=== PATIENT | male | born 1960 | race Two or more races ===

== ENCOUNTER 2021-12-05 05:14 | Emergency (ER) | payer SELFPAY ==
[~2021-12-05] VITALS: Ht 167.6 cm; Wt 68.1 kg
[2021-12-05 05:31] VITALS: BP 129/88
[2021-12-05 06:23] LABS: ALBUMIN 3.9 g/dL (3.2-5.0); ALKALINE PHOSPHATASE 100 u/l (38-126); ANION GAP 16 (6-22 (CALC)); BILIRUBIN, TOTAL 1.4 mg/dL (0.0-1.4); BUN 15 mg/dL (8-23); BUN/CREATININE RATIO 13 (12-20 (CALC)); CARBON DIOXIDE 25 mmol/l (22-30); CHLORIDE 99 mmol/l (95-108); CREATININE 1.1 mg/dL (0.7-1.3); GFR FOR AFR.AMER. > 60 ML/MIN (>=60 (CALC)); GFR OTHER RACES > 60 ML/MIN (>=60 (CALC)); POTASSIUM 4.1 mmol/l (3.5-5.1); SGOT/AST 33 u/l (19-48); SODIUM 136 mmol/l (137-146); TOTAL PROTEIN 7.9 g/dL (6.3-8.2)
[2021-12-05 06:35] LABS: HEMATOCRIT 40.5 % (39.0-50.0); HEMOGLOBIN 13.9 g/dl (14.0-18.0); IMMATURE GRANULOCYTES 0.5 % (0.0-5.0); MEAN CORPUSCULAR HGB 34.3 pG CALC (26.0-32.0); MEAN CORPUSCULAR HGB CONC 34.3 g/dL CAL (32.0-36.0); NEUT# 16.99 thou/uL (1.82-7.42); RED BLOOD COUNT 4.05 mill/uL (4.70-6.10); RED CELL DISTRI WIDTH 12.1 % (11.5-15.5)
[2021-12-05 06:36] VITALS: BP 120/75
[2021-12-05 06:37] LABS: MYOGLOBIN 47 ng/mL (0 - 121)
[2021-12-05 07:00] VITALS: BP 123/82
[2021-12-05 07:30] VITALS: BP 119/77
[2021-12-05 09:08] LABS: URINE BLOOD DIPSTICK LARGE (NEGATIVE); URINE COLOR ORANGE; URINE GLUCOSE - DIPSTICK NEGATIVE (NEGATIVE); URINE KETONE TRACE mg/dL (NEGATIVE); URINE LEUK ESTERASE NEGATIVE (NEGATIVE); URINE PH 5.5 (4.5-8.0); URINE PROTEIN - DIPSTICK 30 mg/dL (NEG-TRACE); URINE SPECIFIC GRAVITY >=1.030
[2021-12-05 09:12] VITALS: BP 119/82
[2021-12-05 09:17] LABS: URINE BILIRUBIN - DIPSTICK SMALL (NEGATIVE); URINE NITRITE - DIPSTICK NEGATIVE (Negative)
[2021-12-05 09:30] LABS: URINE AMORPH SEDIMENT MANY hpf (NONE-FER); URINE WBC 0-2 WBC/hpf (0-5)
[2021-12-05 09:31] LABS: URINE TRANSITIONAL EPI. CELLS FEW hpf
[2021-12-05 09:40] VITALS: BP 119/82
== END 2021-12-05 09:45 | disposition short-term general hospital (02) | DRG 558 ==
LOC: ED 05:14
PROVIDERS: Emergency Medicine
DX: M60.08 Infective myositis, other site (principal); R94.31 Abnormal electrocardiogram [ECG] [EKG]; G20 Parkinson's disease; Z20.822 Contact with and (suspected) exposure to COVID-19
CPT/HCPCS: J1644

== ENCOUNTER 2022-01-07 16:11 | Emergency (ER) | payer SELFPAY ==
[~2022-01-07] VITALS: Ht 167.6 cm; Wt 64.9 kg
[2022-01-07 17:09] LABS: URINE BILIRUBIN - DIPSTICK NEGATIVE (NEGATIVE); URINE BLOOD DIPSTICK NEGATIVE (NEGATIVE); URINE COLOR YELLOW; URINE GLUCOSE - DIPSTICK NEGATIVE (NEGATIVE); URINE KETONE NEGATIVE (NEGATIVE); URINE LEUK ESTERASE NEGATIVE (NEGATIVE); URINE PROTEIN - DIPSTICK NEGATIVE (NEG-TRACE); URINE SPECIFIC GRAVITY 1.025; URINE UROBILINOGEN - DIPSTICK 0.2 E.U./dL (0.2)
[2022-01-07 17:11] LABS: URINE NITRITE - DIPSTICK NEGATIVE (Negative)
[2022-01-07 17:13] LABS: IMMATURE GRANULOCYTES 0.3 % (0.0-5.0); MEAN CELL VOLUME 99.8 fL CALC (80.0-100.0); MEAN CORPUSCULAR HGB 33.6 pG CALC (26.0-32.0); MEAN CORPUSCULAR HGB CONC 33.6 g/dL CAL (32.0-36.0); NEUT# 3.13 thou/uL (1.82-7.42); RED BLOOD COUNT 4.32 mill/uL (4.70-6.10); RED CELL DISTRI WIDTH 12.8 % (11.5-15.5)
[2022-01-07 17:15] LABS: HEMATOCRIT 43.1 % (39.0-50.0); HEMOGLOBIN 14.5 g/dl (14.0-18.0)
[2022-01-07 17:24] LABS: ALBUMIN 4.4 g/dL (3.2-5.0); ALKALINE PHOSPHATASE 98 u/l (38-126); ANION GAP 16 (6-22 (CALC)); BILIRUBIN, TOTAL 0.5 mg/dL (0.0-1.4); BUN 9 mg/dL (8-23); BUN/CREATININE RATIO 10 (12-20 (CALC)); CARBON DIOXIDE 22 mmol/l (22-30); CHLORIDE 106 mmol/l (95-108); CREATININE 0.9 mg/dL (0.7-1.3); GFR FOR AFR.AMER. > 60 ML/MIN (>=60 (CALC)); GFR OTHER RACES > 60 ML/MIN (>=60 (CALC)); POTASSIUM 4.9 mmol/l (3.5-5.1); SGOT/AST 50 u/l (19-48); SODIUM 139 mmol/l (137-146); TOTAL PROTEIN 8.6 g/dL (6.3-8.2)
[2022-01-07 18:40] VITALS: BP 129/87
== END 2022-01-07 18:59 | disposition home or self-care (01) | DRG 948 ==
LOC: ED 16:11
PROVIDERS: Family Medicine
DX: R53.1 Weakness (principal); H53.8 Other visual disturbances; F10.10 Alcohol abuse, uncomplicated

== ENCOUNTER 2022-01-15 16:23 | Emergency (ER) | payer SELFPAY ==
[~2022-01-15] VITALS: Ht 167.6 cm; Wt 84.0 kg
[2022-01-15 16:46] VITALS: BP 144/101
[2022-01-15 17:00] VITALS: BP 147/101
[2022-01-15] MEDS ORDERED: NAPROXEN500 MG PO (17:07)
[2022-01-15 17:15] VITALS: BP 149/104
[2022-01-15 17:30] VITALS: BP 149/104
== END 2022-01-15 17:30 | disposition home or self-care (01) | DRG 552 ==
LOC: ED 16:23
DX: M54.50 Low back pain, unspecified (principal)